=== PATIENT | female | born 1995 | race Caucasian/White ===

== ENCOUNTER 2022-10-26 17:34 | Emergency (ER) | payer OTHER ==
[~2022-10-26] VITALS: Ht 157.5 cm; Wt 49.2 kg
[2022-10-26 18:44] LABS: BASO % 0.3 % (0.0-1.0); EOS # 0.1 10^3/uL (0.0-0.5); HEMATOCRIT 35.9 % (36.0-47.0); HEMOGLOBIN 11.9 g/dl (12.0-15.5); LYMPH # 2.6 10^3/uL (1.5-5.0); LYMPH % 27.1 % (24.0-44.0); MEAN CORPUSCULAR HEMOGLOBIN 27.6 pg (27.0-33.0); MEAN CORPUSCULAR HGB CONC 33.1 g/dl (32.0-36.5); MEAN CORPUSCULAR VOLUME 83.3 fl (80.0-96.0); MONO # 0.6 10^3/uL (0.0-0.8); MONO % 6.7 % (2.0-8.0); NEUTROPHILS # 6.1 10^3/uL (1.5-8.5); NEUTROPHILS % 64.7 % (36.0-66.0); PLATELET COUNT, AUTOMATED 321 10^3/uL (150-450); RED BLOOD COUNT 4.31 10^6/uL (4.00-5.40); WHITE BLOOD COUNT 9.5 10^3/uL (4.0-10.0)
[2022-10-26 19:01] LABS: LIPASE 59 U/L (12-53)
[2022-10-26 19:03] LABS: ALBUMIN 3.8 G/DL (3.2-5.2); ALKALINE PHOSPHATASE 29 U/L (46-116); ALT/SGPT 14 U/L (7.0-40); AST/SGOT 8 U/L (<34); BILIRUBIN,DIRECT < 0.1 MG/DL (<0.4); BILIRUBIN,TOTAL 0.2 MG/DL (0.3-1.2); BLOOD UREA NITROGEN 10 MG/DL (9-23); CALCIUM LEVEL 9.2 MG/DL (8.5-10.1); CARBON DIOXIDE LEVEL 26 MMOL/L (20-31); CHLORIDE LEVEL 106 MMOL/L (98-107); CREATININE FOR GFR 0.47 MG/DL (0.55-1.30); GLOMERULAR FILTRATION RATE > 60.0 (>60); GLUCOSE, FASTING 84 MG/DL (60-100); POTASSIUM SERUM 4.5 MMOL/L (3.5-5.1); SODIUM LEVEL 137 MMOL/L (136-145); TOTAL PROTEIN 6.6 G/DL (5.7-8.2)
[2022-10-26 19:27] LABS: HCG, SERUM QUANTITATIVE 29465.5 MIU/ML (<4.2)
[2022-10-26 20:10] VITALS: BP 112/58; TEMP 97.4; O2SAT 100
== END 2022-10-26 20:11 | disposition home or self-care (01) ==
LOC: M ED 17:34
DX: O20.8 Other hemorrhage in early pregnancy (principal); Z3A.01 Less than 8 weeks gestation of pregnancy; O99.331 Smoking (tobacco) complicating pregnancy, first trimester

== ENCOUNTER 2022-12-01 11:39 | Emergency (ER) | payer OTHER ==
[~2022-12-01] VITALS: Ht 157.5 cm; Wt 51.1 kg
[2022-12-01] MEDS ORDERED: ONDANSETRON 4MG 2ML VIAL IV ONE (12:05)
[2022-12-01] MEDS ORDERED: NS 1,000 ML IV ONE (12:05)
[2022-12-01 12:18] LABS: BASO % 0.2 % (0.0-1.0); EOS # 0.2 10^3/uL (0.0-0.5); EOS % 1.8 % (0.0-3.0); HEMATOCRIT 39.5 % (36.0-47.0); LYMPH # 1.2 10^3/uL (1.5-5.0); LYMPH % 14.9 % (24.0-44.0); MEAN CORPUSCULAR HEMOGLOBIN 27.7 pg (27.0-33.0); MEAN CORPUSCULAR HGB CONC 32.9 g/dl (32.0-36.5); MEAN CORPUSCULAR VOLUME 84.2 fl (80.0-96.0); MONO # 0.5 10^3/uL (0.0-0.8); MONO % 6.5 % (2.0-8.0); NEUTROPHILS # 6.3 10^3/uL (1.5-8.5); NEUTROPHILS % 76.5 % (36.0-66.0); PLATELET COUNT, AUTOMATED 283 10^3/uL (150-450); RED BLOOD COUNT 4.69 10^6/uL (4.00-5.40); WHITE BLOOD COUNT 8.2 10^3/uL (4.0-10.0)
[2022-12-01 12:37] LABS: LIPASE 53 U/L (12-53)
[2022-12-01 12:40] LABS: ALBUMIN 3.7 G/DL (3.2-5.2); ALKALINE PHOSPHATASE 30 U/L (46-116); ALT/SGPT 16 U/L (7.0-40); AST/SGOT 11 U/L (<34); BILIRUBIN,DIRECT < 0.1 MG/DL (<0.4); BILIRUBIN,TOTAL 0.3 MG/DL (0.3-1.2); TOTAL PROTEIN 7.2 G/DL (5.7-8.2)
[2022-12-01 13:08] LABS: HCG, SERUM QUANTITATIVE 144581.2 MIU/ML (<4.2)
[2022-12-01] MEDS ORDERED: ONDA4TAB6 PO (14:41)
[2022-12-01 14:48] VITALS: BP 118/67; TEMP 99.2; O2SAT 99
== END 2022-12-01 14:52 | disposition home or self-care (01) ==
LOC: M ED 11:39
DX: O21.9 Vomiting of pregnancy, unspecified (principal); R19.7 Diarrhea, unspecified; Z3A.11 11 weeks gestation of pregnancy; O99.611 Diseases of the digestive system complicating pregnancy, first trimester; Z79.899 Other long term (current) drug therapy; K62.5 Hemorrhage of anus and rectum
CPT/HCPCS: 76801; 80047; 80076; 81001; 83690; 84702; 85025; 86850; 86900; 86901; 87086; 93976; 96374; 99284; J2405

== ENCOUNTER 2022-12-22 11:17 | Emergency (ER) | payer OTHER ==
[~2022-12-22] VITALS: Ht 157.5 cm; Wt 53.7 kg
[~2022-12-22 11:17] MED LIST: ONDA4TAB6 PO
[2022-12-22] MEDS ORDERED: VITA1TAB70 PO (11:25)
[2022-12-22] MEDS ORDERED: NS 1,000 ML IV ONE (12:55)
[2022-12-22] MEDS ORDERED: METOCLOPRAMIDE INJ 10MG/2ML VIAL IV ONE (12:55)
[2022-12-22] MEDS ORDERED: diphenhydrAMINE 50MG/ML VIAL IV ONE (13:15)
[2022-12-22 13:31] LABS: BASO % 0.2 % (0.0-1.0); EOS # 0.1 10^3/uL (0.0-0.5); EOS % 0.6 % (0.0-3.0); HEMATOCRIT 34.1 % (36.0-47.0); HEMOGLOBIN 11.3 g/dl (12.0-15.5); LYMPH # 1.3 10^3/uL (1.5-5.0); LYMPH % 12.5 % (24.0-44.0); MEAN CORPUSCULAR HEMOGLOBIN 27.6 pg (27.0-33.0); MEAN CORPUSCULAR HGB CONC 33.1 g/dl (32.0-36.5); MEAN CORPUSCULAR VOLUME 83.4 fl (80.0-96.0); MONO # 0.4 10^3/uL (0.0-0.8); MONO % 3.9 % (2.0-8.0); NEUTROPHILS # 8.2 10^3/uL (1.5-8.5); NEUTROPHILS % 82.5 % (36.0-66.0); PLATELET COUNT, AUTOMATED 243 10^3/uL (150-450); RED BLOOD COUNT 4.09 10^6/uL (4.00-5.40)
[2022-12-22 13:57] LABS: ALBUMIN 3.3 G/DL (3.2-5.2); ALKALINE PHOSPHATASE 29 U/L (46-116); ALT/SGPT 28 U/L (7.0-40); AST/SGOT 14 U/L (<34); BILIRUBIN,DIRECT < 0.1 MG/DL (<0.4); BILIRUBIN,TOTAL 0.4 MG/DL (0.3-1.2); BLOOD UREA NITROGEN 7 MG/DL (9-23); CALCIUM LEVEL 9.5 MG/DL (8.5-10.1); CARBON DIOXIDE LEVEL 24 MMOL/L (20-31); CHLORIDE LEVEL 104 MMOL/L (98-107); CPK CREATINE PHOSPHOKINASE 65 U/L (34-145); GLOMERULAR FILTRATION RATE > 60.0 (>60); GLUCOSE, FASTING 86 MG/DL (60-100); POTASSIUM SERUM 3.8 MMOL/L (3.5-5.1); SODIUM LEVEL 136 MMOL/L (136-145); TOTAL PROTEIN 6.6 G/DL (5.7-8.2)
[2022-12-22] MEDS ORDERED: ACETAMINOPHEN 500 MG TAB PO ONE (14:25)
[2022-12-22 16:37] VITALS: BP 102/55; TEMP 97.6; O2SAT 100
== END 2022-12-22 16:38 | disposition home or self-care (01) ==
LOC: M ED 11:17
DX: O99.352 Diseases of the nervous system complicating pregnancy, second trimester (principal); Z3A.14 14 weeks gestation of pregnancy
CPT/HCPCS: 76815; 80048; 80076; 82550; 85025; 96361; 96374; 96375; 99284; J1200; J2765

== ENCOUNTER 2022-12-27 12:01 | Emergency (ER) | payer OTHER ==
[~2022-12-27] VITALS: Ht 157.5 cm; Wt 52.3 kg
[~2022-12-27 12:01] MED LIST changes: +VITA1TAB70 PO
[2022-12-27 12:02] VITALS: BP 119/71; TEMP 98.1; O2SAT 100
[2022-12-27] MEDS ORDERED: PRENTAB9 (12:19)
[2022-12-27] MEDS ORDERED: SERT50TA29 (12:19)
[2022-12-27] MEDS ORDERED: UNIS25TA3 (12:19)
== END 2022-12-27 14:10 | disposition left against medical advice (07) ==
LOC: M ED 12:01
DX: R10.9 Unspecified abdominal pain (principal); Z53.21 Procedure and treatment not carried out due to patient leaving prior to being seen by health care provider

== ENCOUNTER 2023-02-25 13:52 | Outpatient (CLI) | payer OTHER ==
[~2023-02-25] VITALS: Ht 157.5 cm; Wt 62.3 kg
[~2023-02-25 13:52] MED LIST changes: +PRENTAB9; +SERT50TA29; +UNIS25TA3
[2023-02-25] MEDS ORDERED: HOME MED LIST COMPLETE! XX SCH (14:10)
[2023-02-25] MEDS ORDERED: PRENTAB9 PO (14:13)
[2023-02-25 15:15] LABS: APPEARANCE, URINE CLEAR (CLEAR); BACTERIA, URINE AUTO 1+ (NEGATIVE); BILIRUBIN, URINE AUTO NEGATIVE (NEGATIVE); BLOOD, URINE BLOOD 1+ (NEGATIVE); COLOR, URINE COLORLESS (YELLOW); GLUCOSE, URINE (UA) AUTO NEGATIVE (NEGATIVE); KETONE, URINE AUTO NEGATIVE (NEGATIVE); LEUKOCYTE ESTERASE, URINE AUTO NEGATIVE (NEGATIVE); NITRITE, URINE AUTO NEGATIVE (NEGATIVE); PROTEIN, URINE AUTO NEGATIVE (NEGATIVE); RBC, URINE AUTO 0 /HPF (0-3); SPECIFIC GRAVITY URINE AUTO 1.002 (1.002-1.035); SQUAMOUS EPITHELIAL CELL UR AU 0 /HPF (0-6); UROBILINOGEN, URINE AUTO 0.2 mg/dL (0.0-2.0); WBC, URINE AUTO 0 /HPF (0-3)
== END 2023-02-25 14:53 | disposition home or self-care (01) ==
LOC: M LDO 13:52
PROVIDERS: ATTEND Obstetrics & Gynecology
DX: O26.892 Other specified pregnancy related conditions, second trimester (principal); Z3A.23 23 weeks gestation of pregnancy; O32.1XX0 Maternal care for breech presentation, not applicable or unspecified
CPT/HCPCS: 76815; 81001; 87086; G0463

== ENCOUNTER 2023-04-04 22:15 | Outpatient (CLI) | payer OTHER ==
[~2023-04-04] VITALS: Ht 157.5 cm; Wt 65.7 kg
[~2023-04-04 22:15] MED LIST changes: +PRENTAB9 PO
[2023-04-04] MEDS ORDERED: VITA100T59 PO (22:25)
[2023-04-04] MEDS ORDERED: FERR325T3 PO (22:25)
[2023-04-04 22:31] VITALS: BP 117/66
== END 2023-04-04 22:59 | disposition home or self-care (01) ==
LOC: M LDO 22:15
PROVIDERS: ATTEND Obstetrics & Gynecology
DX: O36.8130 Decreased fetal movements, third trimester, not applicable or unspecified (principal); Z3A.28 28 weeks gestation of pregnancy
CPT/HCPCS: 59025; G0463

== ENCOUNTER 2023-04-29 13:11 | Outpatient (CLI) | payer SELFPAY ==
[~2023-04-29] VITALS: Ht 157.5 cm; Wt 66.0 kg
[~2023-04-29 13:11] MED LIST changes: +FERR325T3 PO; +VITA100T59 PO
[2023-04-29 13:27] VITALS: BP 119/74
[2023-04-29] MEDS ORDERED: LR 1,000 ML IV ONE (14:15)
[2023-04-29] MEDS: BETAMETHASONE SOLUSPAN 6MG/ML 5ML VIAL IM SCH (15:43)
[2023-04-29] MEDS ORDERED: FLUCONAZOLE 50MG TABLET PO ONE (15:55)
[2023-04-29] MEDS ORDERED: OXYTOCIN INJ 10UNITS/ML 1ML VIAL IM PRN (17:20)
[2023-04-29] MEDS ORDERED: CARBOPROST TROMETHAMINE 250 MCG/ML AMP IM PRN (17:20)
[2023-04-29] MEDS ORDERED: TRANEXAMIC ACID INJection 1,000 MG in NS 100 ML IV PRN (17:20)
[2023-04-29] MEDS ORDERED: NIFEdipine 10 MG CAP PO ONE ×2 (17:20→18:50)
[2023-04-29] MEDS ORDERED: METHYLERGONOVINE MALEATE 0.2MG/ML 1ML VIAL IM PRN (17:20)
[2023-04-29] MEDS ORDERED: OXYTOCIN DRIP 30 UNITS in IV 1 EA IV PRN ×6 (17:20)
[2023-04-29] MEDS ORDERED: OXYTOCIN INJ 10UNITS/ML 1ML VIAL IV PRN (17:20)
[2023-04-29] MEDS ORDERED: LIDOCAINE 1% MDV 20ML VIAL INFIL PRN (17:20)
[2023-04-29 17:46] LABS: CHLAMYDIA DNA AMPLIFICATION NEGATIVE (NEGATIVE); GC DNA AMPLIFICATION NEGATIVE (NEGATIVE)
[2023-04-29] MEDS: LR 1,000 ML IV SCH (17:51)
[2023-04-29] MEDS: ACETAMINOPHEN 500 MG TAB PO PRN (19:32)
[2023-04-29 19:33] VITALS: BP 100/63
[2023-04-29 22:07] VITALS: BP 99/61
[2023-04-29] MEDS ORDERED: NALBUPHINE HCL 1MG/0.1ML (100MG/10ML) MDV IV ONE (23:00)
[2023-04-30 00:05] VITALS: BP 104/61
[2023-04-30] MEDS: LR 1,000 ML IV SCH (01:49)
[2023-04-30 02:41] VITALS: BP 108/60
[2023-04-30 05:48] VITALS: BP 118/76
[2023-04-30] MEDS: ACETAMINOPHEN 500 MG TAB PO PRN (12:02)
[2023-04-30 12:04] VITALS: BP 97/59
[2023-04-30] MEDS ORDERED: NALBUPHINE HCL 1MG/0.1ML (100MG/10ML) MDV IV ONE (13:05)
[2023-04-30] MEDS: BETAMETHASONE SOLUSPAN 6MG/ML 5ML VIAL IM SCH (15:47)
== END 2023-04-30 16:00 ==
LOC: M LDO 13:11
PROVIDERS: ATTEND Obstetrics & Gynecology
DX: O46.93 Antepartum hemorrhage, unspecified, third trimester (principal); O60.03 Preterm labor without delivery, third trimester; Z3A.32 32 weeks gestation of pregnancy; O26.893 Other specified pregnancy related conditions, third trimester; R25.2 Cramp and spasm; M54.9 Dorsalgia, unspecified; O9A.213 Injury, poisoning and certain other consequences of external causes complicating pregnancy, third trimester; S30.1XXA Contusion of abdominal wall, initial encounter; W54.1XXA Struck by dog, initial encounter; Y92.9 Unspecified place or not applicable
CPT/HCPCS: 59025; 76811; 76815; 76820; 81001; 87081; 87810; 87850; 96361; 96372; 96374; 96376; G0463; J0702; J2300

== ENCOUNTER 2023-05-04 18:46 | Outpatient (CLI) | payer OTHER ==
[~2023-05-04] VITALS: Ht 157.5 cm; Wt 66.0 kg
[2023-05-04] MEDS ORDERED: HOME MED LIST COMPLETE! XX SCH (19:05)
[2023-05-04 19:06] VITALS: BP 123/71; O2SAT 100
[2023-05-04 20:21] LABS: INR 0.94; PROTHROMBIN TIME 12.3 SECONDS (12.5-14.5)
[2023-05-04 20:58] VITALS: BP 127/78
[2023-05-04] MEDS ORDERED: TERBUTALINE SULFATE 1 MG/ML 1ML VIAL SC ONE (21:00)
== END 2023-05-04 21:37 | disposition home or self-care (01) ==
LOC: M LDO 18:46
PROVIDERS: ATTEND Obstetrics & Gynecology
DX: O47.03 False labor before 37 completed weeks of gestation, third trimester (principal); Z3A.33 33 weeks gestation of pregnancy
CPT/HCPCS: 36415; 59025; 76815; 76819; 81001; 85384; 85610; 85730; 96372; G0463; J3105

== ENCOUNTER 2023-05-23 12:38 | Outpatient (CLI) | payer OTHER ==
[~2023-05-23] VITALS: Ht 157.5 cm; Wt 67.7 kg
[2023-05-23 12:52] VITALS: BP 120/74
[2023-05-23] MEDS ORDERED: HOME MED LIST COMPLETE! XX SCH (12:55)
== END 2023-05-23 16:18 | disposition home or self-care (01) ==
LOC: M LDO 12:38
PROVIDERS: ATTEND Obstetrics & Gynecology
DX: O47.03 False labor before 37 completed weeks of gestation, third trimester (principal); Z3A.35 35 weeks gestation of pregnancy
CPT/HCPCS: 59025; G0463

== ENCOUNTER 2023-06-03 03:35 | Inpatient (IN) | payer OTHER ==
[~2023-06-03] VITALS: Ht 157.5 cm; Wt 69.0 kg
[2023-06-03] VITALS (66 sets, daily range): BP systolic 79–162; BP diastolic 45–80; O2SAT 97–98
[2023-06-03 04:48] LABS: HEMATOCRIT 36.3 % (36.0-47.0); HEMOGLOBIN 12.2 g/dl (12.0-15.5); MEAN CORPUSCULAR HEMOGLOBIN 27.5 pg (27.0-33.0); MEAN CORPUSCULAR HGB CONC 33.6 g/dl (32.0-36.5); MEAN CORPUSCULAR VOLUME 81.8 fl (80.0-96.0); PLATELET COUNT, AUTOMATED 196 10^3/uL (150-450); RED BLOOD COUNT 4.44 10^6/uL (4.00-5.40); WHITE BLOOD COUNT 11.2 10^3/uL (4.0-10.0)
[2023-06-03] MEDS ORDERED: LACTATED RINGER'S 1000 ML IV STA (05:46)
[2023-06-03] MEDS ORDERED: OXYTOCIN DRIP 30 UNITS in IV 1 EA IV SCH ×2 (05:50→16:05)
[2023-06-03] MEDS ORDERED: OXYTOCIN DRIP 30 UNITS in IV 1 EA IV PRN ×6 (05:50)
[2023-06-03] MEDS ORDERED: TRANEXAMIC ACID INJection 1,000 MG in NS 100 ML IV PRN (05:50)
[2023-06-03] MEDS ORDERED: OXYTOCIN INJ 10UNITS/ML 1ML VIAL IV PRN (05:50)
[2023-06-03] MEDS ORDERED: CARBOPROST TROMETHAMINE 250 MCG/ML AMP IM PRN (05:50)
[2023-06-03] MEDS: LR 1,000 ML IV SCH ×4 (05:50→13:50)
[2023-06-03] MEDS ORDERED: LIDOCAINE 1% MDV 20ML VIAL INFIL PRN (05:50)
[2023-06-03] MEDS ORDERED: OXYTOCIN INJ 10UNITS/ML 1ML VIAL IM PRN (05:50)
[2023-06-03] MEDS ORDERED: METHYLERGONOVINE MALEATE 0.2MG/ML 1ML VIAL IM PRN (05:50)
[2023-06-03] MEDS ORDERED: ONDANSETRON 4MG 2ML VIAL IV PRN (07:25)
[2023-06-03] MEDS ORDERED: diphenhydrAMINE 50MG/ML VIAL IV PRN (07:25)
[2023-06-03] MEDS ORDERED: LR 500 ML IV PRN (07:25)
[2023-06-03] MEDS ORDERED: NALOXONE INJ 0.4MG/1ML VIAL IV PRN (07:25)
[2023-06-03] MEDS ORDERED: EPIDURAL/PCA KEYS XX PRN ×2 (07:25→10:55)
[2023-06-03] MEDS: FENTANYL/ROPIVACAINE/NACL BAG 100 ML EPIDURAL SCH ×2 (07:37→17:25)
[2023-06-03] MEDS: ePHEDrine SULFATE 25 MG/5 ML(5MG/ML) SYRINGE IVP PRN ×3 (10:32→10:49)
[2023-06-03] MEDS ORDERED: ePHEDrine SULFATE 25 MG/5 ML(5MG/ML) SYRINGE IVP PRN (10:55)
[2023-06-03 16:02] LABS: CORD GAS HCO3 V 23.5 MMOL/L; CORD GAS O2 SAT V 69.8 %; CORD GAS PCO2 V 47.4 mmHg; CORD GAS PH V 7.314 UNITS; CORD GAS SBC V 21.3 MMOL/L
[2023-06-03] MEDS ORDERED: IBUPROFEN 600MG TAB PO PRN (16:05)
[2023-06-03] MEDS ORDERED: RHOGAM 300MCG (1500IU) INJ IM SCH (16:05)
[2023-06-03] MEDS ORDERED: DIBUCAINE 1% OINTMENT 30GM TOP PRN (16:05)
[2023-06-03] MEDS ORDERED: ACETAMINOPHEN TAB 650MG DOSE (2X325MG) PO PRN (16:05)
[2023-06-03] MEDS ORDERED: DOCUSATE SODIUM 100MG CAPSULE PO PRN (16:05)
[2023-06-03] MEDS ORDERED: METHYLERGONOVINE MALEATE 0.2 MG TAB PO PRN (16:05)
[2023-06-03 16:07] LABS: CORD GAS ABE A -3.2; CORD GAS HCO3 A 25.3 MMOL/L; CORD GAS O2 SAT A 47.9 %; CORD GAS PCO2 A 59.2 mmHg; CORD GAS PH A 7.249 UNITS; CORD GAS PO2 A 22.3 mmHg; CORD GAS SBC A 20.6 MMOL/L; CORD GAS TCO2 A 27.1 MMOL/L
[2023-06-03] MEDS: IBUPROFEN 800 MG TAB PO PRN (21:56)
[2023-06-04] MEDS: ACETAMINOPHEN 500 MG TAB PO PRN ×3 (02:25→19:19)
[2023-06-04 06:00] VITALS: BP 124/67
[2023-06-04] MEDS: IBUPROFEN 800 MG TAB PO PRN ×2 (06:27→19:17)
[2023-06-04 07:30] VITALS: BP 124/67; TEMP 98.3; O2SAT 98
[2023-06-04] MEDS: PRENATAL VITAMINS CHEWABLE TABLET PO SCH (07:31)
[2023-06-04 17:50] VITALS: BP 122/67; O2SAT 99
[2023-06-04] MEDS ORDERED: MOM 30ML SUSPENSION UDC PO ONE (21:00)
[2023-06-04] MEDS ORDERED: POLYETHYLENE GLYCOL (MIRALAX) 238GM BOTTLE PO ONE (21:00)
[2023-06-05] MEDS: ACETAMINOPHEN 500 MG TAB PO PRN (02:35)
[2023-06-05 06:00] VITALS: BP 116/70; O2SAT 98
[2023-06-05] MEDS: PRENATAL VITAMINS CHEWABLE TABLET PO SCH (07:54)
[2023-06-05] MEDS: IBUPROFEN 800 MG TAB PO PRN (07:56)
[2023-06-05] MEDS ORDERED: MEASLES,MUMPS,RUBELLA VACCINE INJ (MMR-II) SC.IMMUN ONE (09:00)
== END 2023-06-05 12:12 | disposition home or self-care (01) | DRG 807 ==
LOC: M LDO 03:35 → M LDI 04:02 → M OBS 18:35
PROVIDERS: ADMIT Obstetrics & Gynecology; ATTEND Obstetrics & Gynecology
PROC: 10E0XZZ Delivery of Products of Conception, External Approach (ICD-10-PCS; principal; 2023-06-03)
PROC: 0HQ9XZZ Repair Perineum Skin, External Approach (ICD-10-PCS; 2023-06-03)
PROC: 10907ZC Drainage of Amniotic Fluid, Therapeutic from Products of Conception, Via Natural or Artificial Opening (ICD-10-PCS; 2023-06-03)
DX: O99.334 Smoking (tobacco) complicating childbirth (principal); Z37.0 Single live birth; F17.290 Nicotine dependence, other tobacco product, uncomplicated; O70.0 First degree perineal laceration during delivery; Z3A.37 37 weeks gestation of pregnancy